=== PATIENT | male | born 1955 | race Caucasian/White ===

== ENCOUNTER 2018-02-15 14:26 | Emergency (ER) | payer OTHER ==
[~2018-02-15] VITALS: Ht 180.3 cm; Wt 69.0 kg
[~2018-02-15 14:26] MED LIST: ASPIRIN81 M2 PO; CARVEDILOL3.125 MG PO; ENTRESTO 24 MG1 EACH PO; LIPITOR10 MG PO; VENTOLIN HFA 1818 GM INH
[2018-02-15] MEDS ORDERED: REQUIP0.5 MG PO (14:50)
[2018-02-15] MEDS ORDERED: LIORESAL 10 MG10 MG PO (14:50)
[2018-02-15] MEDS ORDERED: XARELTO20 MG PO (14:51)
[2018-02-15] MEDS ORDERED: PEPCID AC20 MG PO (14:51)
[2018-02-15] MEDS ORDERED: EUCERIN INTENS113 GM TOP (14:52)
[2018-02-15] MEDS ORDERED: DESENEX85 GM TOP (14:52)
[2018-02-15 15:31] VITALS: BP 106/59
== END 2018-02-15 15:33 | disposition home or self-care (01) ==
LOC: M.ERS 14:26
DX: L89.610 Pressure ulcer of right heel, unstageable (principal); F17.210 Nicotine dependence, cigarettes, uncomplicated; Z86.73 Personal history of transient ischemic attack (TIA), and cerebral infarction without residual deficits

== ENCOUNTER → 2018-02-17 | Outpatient (CLI) | payer OTHER ==
[~2018-02-17] MED LIST changes: +DESENEX85 GM TOP; +EUCERIN INTENS113 GM TOP; +LIORESAL 10 MG10 MG PO; +PEPCID AC20 MG PO; +REQUIP0.5 MG PO; +XARELTO20 MG PO
== END ==
LOC: M.WC 01:27
DX: L89.511 Pressure ulcer of right ankle, stage 1 (principal); I63.40 Cerebral infarction due to embolism of unspecified cerebral artery; I42.9 Cardiomyopathy, unspecified; I50.22 Chronic systolic (congestive) heart failure; E78.2 Mixed hyperlipidemia; G62.9 Polyneuropathy, unspecified; K21.9 Gastro-esophageal reflux disease without esophagitis; Z68.21 Body mass index [BMI] 21.0-21.9, adult; Z86.73 Personal history of transient ischemic attack (TIA), and cerebral infarction without residual deficits; Z87.891 Personal history of nicotine dependence

== ENCOUNTER → 2018-06-01 | Outpatient (CLI) | payer OTHER | LOC: M.RAD 15:14 | DX: M79.672 Pain in left foot (principal); M79.661 Pain in right lower leg; R60.0 Localized edema ==

== ENCOUNTER → 2018-09-06 | Outpatient (CLI) | payer OTHER ==
--- NOTE | 2018-09-06 17:16 | 2DMMODE ---
[place] [address] 2 D/M-MODE ECHOCARDIOGRAM Name: MARTHALASHELL DAVIS Room: [facility]#: [id number] Admission: 09/06/18 Attend Phys: Saurabh Holder, Discharge: Date of : 59 Date of Service: 09/06/18 1715 Report #: [id number] THIS REPORT FOR: //name// APPROVED REPORT Study performed: 09/06/2018 14:38:39 EXAM: Comprehensive 2D, Doppler, and color-flow Echocardiogram Patient Location: Out-Patient Status: routine BSA: 1.99 HR: 64 bpm BP: 126/89 mmHg Other Information Study Quality: Good Indications Cardiomyopathy 2D Dimensions IVSd: 13.89 (7-11mm) LVOT Diam: 20.14 (18-24mm) LVDd: 49.86 mm PWd: 13.60 (7-11mm) Ascending Ao: 28.06 (22-36mm) LVDs: 40.85 (25-40mm) Aortic Root: 30.46 mm Volumes Left Atrial Volume (Systole) LA ESV Index: 19.50 mL/m2 Aortic Valve AoV Peak Zhou.: 1.25 m/s AO Peak Gr.: 6.22 mmHg LVOT Max P.14 mmHg AO Mean Gr.: 3.43 mmHg LVOT Mean P.34 mmHg LVOT Max V: 1.24 m/s AO V2 VTI: 25.78 cm LVOT Mean V: 0.68 m/s TAM (VTI): 2.81 cm2 LVOT V1 VTI: 22.73 cm Mitral Valve E/A Ratio: 0.80 MV Decel. Time: 360.52 ms MV E Max Zhou.: 0.50 m/s MV PHT: 104.55 [place] [address] 2 D/M-MODE ECHOCARDIOGRAM Name: LASHELL THOMAS Room: [facility]#: [id number] Admission: 09/06/18 Attend Phys: Saurabh Holder, Discharge: Date of : 59 Date of Service: 09/06/18 1715 Report #: [id number] MVA (PHT): 2.10 cm2 TDI E/Lateral E': 4.55 E/Medial E': 8.33 Medial E' Zhou.: 0.06 m/s Lateral E' Zhou.: 0.11 m/s Pulmonary Valve PV Peak Zhou.: 1.30 m/s PV Peak Gr.: 6.71 mmHg Left Ventricle The left ventricle is normal size. There is global hypokinesis of the left ventricle. Paradoxical septal motion consistent with conduction abnormality. Mild concentric left ventricular hypertrophy. Left ventricular systolic function is mildly decreased. LVEF is 40-45%. Grade I - abnormal relaxation pattern. Right Ventricle The right ventricle is normal size. The right ventricular systolic function is normal. Atria The left atrium size is normal. The right atrium size is normal. Aortic Valve The aortic valve is normal in structure. No aortic regurgitation is present. There is no aortic valvular stenosis. Mitral Valve The mitral valve is normal in structure. Mild mitral regurgitation. No evidence of mitral valve stenosis. Tricuspid Valve The tricuspid valve is normal in structure. There is no tricuspid valve regurgitation noted. Pulmonic Valve The pulmonary valve is normal in structure. There is no pulmonic valvular regurgitation. Great Vessels The aortic root is normal in size. IVC is normal in size and collapses >50% with inspiration[place] [address] 2 D/M-MODE ECHOCARDIOGRAM Name: LASHELL THOMAS Room: [facility]#: [id number] Admission: 09/06/18 Attend Phys: Saurabh Holder, Discharge: Date of : 59 Date of Service: 09/06/181714 Report #: [id number] There is no pericardial effusion. <Conclusion> Mild concentric left ventricular hypertrophy. LVEF is 40-45%. Mild mitral regurgitation. <ELECTRONICALLY SIGNED> By: Noe Capellan MD, FACC 09/06/181714 14 14 Noe Capellan MD, FACC /INF
== END ==
LOC: M.CRD 14:31
DX: I34.0 Nonrheumatic mitral (valve) insufficiency (principal); I51.7 Cardiomegaly; I42.8 Other cardiomyopathies

== ENCOUNTER 2019-12-03 17:13 | Inpatient (IN) | payer OTHER ==
[~2019-12-03] VITALS: Ht 177.8 cm; Wt 81.6 kg
[~2019-12-03 17:13] MED LIST changes: -PEPCID AC20 MG PO
[2019-12-03 17:26] VITALS: BP 116/69
[2019-12-03] MEDS ORDERED: ESCITALOPRA5 MG/5 ML PO (17:32)
[2019-12-03 18:01] LABS: INFLUENZA A ANTIGEN Negative (Negative); INFLUENZA B ANTIGEN Negative (Negative)
[2019-12-03 18:08] LABS: BE 1.6 mmol/L (-2 to +3); PCO2 40.9 mmHg (35.0-45.0); PO2 67.2 mmHg (75.0-100.0); pH 7.424 (7.340-7.450)
[2019-12-03 18:58] LABS: ABSOLUTE BASOPHILS 0.1 thou/uL (0.0-0.2); ABSOLUTE EOSINOPHILS 0.2 thou/uL (0.0-0.7); ABSOLUTE LYMPHOCYTES 2.8 thou/uL (0.8-5.3); ABSOLUTE MONOCYTES 0.8 thou/uL (0.0-1.2); ABSOLUTE NEUTROPHILS 2.1 thou/uL (1.6-8.1); BASOPHILS 0.8 %; EOSINOPHILS 3.7 %; HEMOGLOBIN 15.8 gm/dL (14.0-18.0); LYMPHOCYTES 47.8 %; MCH 30.8 pg (26.0-34.0); MCHC 32.8 g/dL (28.0-37.0); MCV 93.8 fL (80.0-100.0); MONOCYTES 12.7 %; MPV 8.1 fl. (7.2-11.1); NUCLEATED RBCS 0 /100WBC; PLATELET COUNT* 233 thou/uL (150-400); RBC 5.12 mil/uL (4.50-6.00); RDW-CV 14.5 % (10.5-14.5)
[2019-12-03 19:25] LABS: ALBUMIN 3.2 g/dL (3.4-5.0); CALCIUM 7.5 mg/dL (8.5-10.1); CREATININE 0.9 mg/dL (0.6-1.3); TOTAL BILIRUBIN 0.3 mg/dL (<0.1-1.0); TOTAL PROTEIN 6.4 g/dL (6.4-8.2)
[2019-12-03 19:27] LABS: INR 1.3; PROTIME 13.4 Seconds (9.20-11.50)
[2019-12-03 20:11] VITALS: BP 126/71
--- NOTE | 2019-12-04 05:39 | NUR ---
PT ARRIVED AT 2009. A&O, VSS ON RA. ADMISSION HX/ASSESSMENT COMPLETED. MEDS GIVEN ORDERED. USES URINAL TO VOID. PT TOLERATED BREATHING TREATMENT. AT BEDSIDE. WILL CONTINUE TO MONITOR.
[2019-12-04 08:02] VITALS: BP 102/69
[2019-12-04 11:41] LABS: AMP/METHAMP Negative (Negative); BARBITURATES Negative (Negative); BENZODIAZEPINES Negative (Negative); COCAINE Negative (Negative); METHADONE Negative (Negative); OPIATES Negative (Negative); PCP Negative (Negative); THC Negative (Negative)
--- NOTE | 2019-12-04 13:47 | EKG ---
[place] [address] ELECTROCARDIOGRAM REPORT Name: LASHELL THOMAS Room: [address] ADM IN M.R.#: [id number] Admission: 12/03/19 Attend Phys: Nery Rivera MD Discharge: Date of : 59 Report #: [id number] THIS REPORT FOR: //name// [facility] ED Test Date: 2019-12-03 Test Time: 18:24:24 Pat Name: LASHELL THOMAS Department: Room: [facility] Gender: M Documentum Consultant: [facility] : 1955 Requested By: Jodee King Order Number: [id number] MD: Noe Capellan Measurements Intervals [place] Rate: 56 P: 47 W[place]: 216 QRS: -7 QRSD: 148 T: 172 QT: 462 QTc: 446 Interpretive Statements Sinus rhythm Borderline prolonged [place] interval Left bundle branch block Compared to ECG 07/05/2017 19:54:44 pvc no longer seen Electronically Signed On 12-04-2019 13:47:21 BEDSPREAD INSPECTOR by Noe Capellan [email or web address] <ELECTRONICALLY SIGNED> By: Noe Capellan MD, [facility] 12/04/19 1347 1824 1824 Noe Capellan MD, [facility] /EPI
[2019-12-04] MEDS ORDERED: NEURONTIN 400M400 M2 PO (13:56)
[2019-12-04] MEDS ORDERED: ROPINIROLE HCL0.5 MG PO (13:57)
[2019-12-04] MEDS ORDERED: ENTRESTO 24 MG1 EACH PO (13:57)
[2019-12-04] MEDS ORDERED: CARVEDILOL12.5 MG PO (13:58)
[2019-12-04] MEDS ORDERED: LIPITOR40 MG PO (13:59)
--- NOTE | 2019-12-04 16:37 | NUR ---
ASSUMED CARE OF PT AROUND 0730 THIS AM. REFER TO ASSESSMENT. PT'S BROUGHT IN UPDATED MEDICATION LIST. PT'S HOME MED REC UPDATED AND PHYSICIAN NOTIFIED. VSS. PT APPEARS TO HAVE IMPROVED WORK OF BREATH WITH LESS AUDIBLE WHEEZING THIS EVENING. HOPES PT IS WELL ENOUGH TO GO HOME TOMORROW. NO OTHER CONCERNS AT THIS TIME. CLWR. WCTM.
--- NOTE | 2019-12-04 16:54 | NUR ---
cm completed initial assessment to discuss d/c plan. pt , Pat, present at time of assessment. pt uses cane, pt is unemployeed. pt has no hx w/hh. pt has stayed at [facility] after [facility]. pt has supportive family. pt semi active. 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 cm to remain avail to assist as needed.
[2019-12-04 20:10] VITALS: BP 117/72
--- NOTE | 2019-12-05 04:32 | NUR ---
VSS ON RA. DENIED PAIN. MEDS GIVEN ORDERED. UP TO THE BATHROOM BY WHEELCHAIR WITH MODERATE ASSIST. PT REFUSED TURNS. HOURLY ROUNDING COMPLETED. WILL CONTINUE TO MONITOR.
[2019-12-05 05:18] LABS: HEMATOCRIT 40.4 % (42.0-52.0); MCHC 33.6 g/dL (28.0-37.0); MCV 92.2 fL (80.0-100.0); MPV 8.3 fl. (7.2-11.1); NUCLEATED RBCS 0 /100WBC; PLATELET COUNT* 302 thou/uL (150-400); RBC 4.39 mil/uL (4.50-6.00); RDW-CV 14.5 % (10.5-14.5); WBC 20.4 thou/uL (4.0-11.0)
[2019-12-05 05:31] LABS: HEMOGLOBIN 13.6 gm/dL (14.0-18.0)
[2019-12-05 05:40] LABS: CALCIUM 8.3 mg/dL (8.5-10.1); POTASSIUM 3.8 mmol/L (3.5-5.1)
[2019-12-05 06:22] LABS: ABSOLUTE MONOCYTES 0.2 thou/uL (0.0-1.2); ABSOLUTE NEUTROPHILS 19.2 thou/uL (1.6-8.1); ANISOCYTOSIS 1+; PLATELET ESTIMATE ADEQUATE; POIKILOCYTOSIS 1+
[2019-12-05 08:30] VITALS: BP 100/55
[2019-12-05 16:00] VITALS: BP 105/59
--- NOTE | 2019-12-05 16:49 | NUR ---
PATIENT ALERT AND ORIENTED X 4. VITAL SIGNS STABLE ON ROOM AIR. UP WITH ASSISTANCE TO WHEELCHAIR. VOIDING PER URINAL. IV PATENT AND SALINE LOCKED. ANTIBIOTICS GIVEN PER MAR. DENIES PAIN AND NAUSEA AT THIS TIME. FALL PRECAUTIONS IN PLACE AND BED ALARM ON. HOURLY ROUNDS MAINTAINED THROUGHOUT THE SHIFT. CALL LIGHT WITHIN REACH. NURSING WILL CONTINUE TO MONITOR.
--- NOTE | 2019-12-05 17:45 | NUR ---
SPOKE WITH PT.S ON PHONE TO SEE IF SHE FELT COMFORTABLE TAKING HIM HOME AT DISCHARGE AND IF SHE FELT HE WAS BACK TO BASELINE WITH AMBULATION,ETC. SHE SAID YES. SHE DID NOT WANT HIM TO GO TO A SNF. HE IS PART OF THE [employer]. 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 ONE DAY A WEEK,A SPEECH THERAPIST COMES TO THE HOUSE TO WORK WITH HIM. SHE SAID THEY HAVE A WC BUT SHE NORMALLY DOESN'T LET HIM USE IT IN THE HOUSE, HE WOULD WANT TO USE IT ALL THE TIME. IF HE SEEMS WEAKER WHEN HE GETS HOME, SHE WILL HAVE HIM USE IT FOR A FEW DAYS. SHE IS AWARE HE MAY BE DISCHARGED TOMORROW.
[2019-12-05 19:55] VITALS: BP 127/65
[2019-12-06 04:31] LABS: CALCIUM 7.8 mg/dL (8.5-10.1); CREATININE 0.8 mg/dL (0.6-1.3); MAGNESIUM 1.9 mg/dL (1.8-2.4)
--- NOTE | 2019-12-06 05:50 | NUR ---
VSS ON RA. MEDS GIVEN ORDERED. TOLERATING BREATHING TREATMENT. DENIED PAIN. USES CALL LIGHT FOR BATHROOM. ELECTROLYTE REPLACEMENT IN PROGRESS. HOURLY ROUNDING COMPLETED. WILL CONTINUE TO MONITOR.
[2019-12-06] MEDS ORDERED: CEFDINIR300 MG PO (07:55)
[2019-12-06] MEDS ORDERED: AZITHROMYCIN 2250 MG PO (07:55)
[2019-12-06] MEDS ORDERED: TESSALON PERLE100 MG PO (07:55)
[2019-12-06] MEDS ORDERED: NEBULIZER MISCELL (07:56)
[2019-12-06 08:30] VITALS: BP 121/76
[2019-12-06] MEDS ORDERED: PEPCID AC20 MG PO (10:56)
--- NOTE | 2019-12-06 11:00 | NUR ---
ORDER FOR NEBULIZER FROM . SHELBY SPOKE WITH IN ROOM. SHE SAID PT.S PCP- HAD ORDERED ONE FROM [facility] BUT THEY ARE WAITING ON INSURANCE AUTH. SHELBY CALLED [facility] AND SPOKE WITH ALLEN. SHE SAID THEY ACTUALLY RECEIVED AUTH FROM INSURANCE THIS AM AND CAN DELIVER IT TO PTS HOME TODAY. SHE WILL CALL TO MAKE SURE THEY ARE HOME PRIOR TO DELIVERY. ALSO SAID ORDERRED THE MEDICAITIONS TO GO IN THE NEBULIZER. TAYLOR KNOWLES INFORMED.
[2019-12-06 11:02] VITALS: BP 121/76
--- NOTE | 2019-12-06 12:14 | NUR ---
PATIENT D/C INSTRUCTIONS GIVEN AT THIS TIME. PATIENT D/C TO HOME WITH . ALL QUESTIONS ANSWERED. SCRIPTS SENT TO PHARMACY. PAPERWORK GIVEN.
== END 2019-12-06 12:05 | disposition home or self-care (01) | DRG 177 ==
LOC: M.ERS 17:13 → M.TBA-ER 19:18 → M.ORTHSURG 19:18
PROVIDERS: Internal Medicine; Nurse Practitioner Family; ADMIT Internal Medicine
DX: J15.6 Pneumonia due to other Gram-negative bacteria (principal); J96.00 Acute respiratory failure, unspecified whether with hypoxia or hypercapnia; J44.0 Chronic obstructive pulmonary disease with (acute) lower respiratory infection; J44.1 Chronic obstructive pulmonary disease with (acute) exacerbation; I42.9 Cardiomyopathy, unspecified; I69.351 Hemiplegia and hemiparesis following cerebral infarction affecting right dominant side; R47.01 Aphasia; I50.9 Heart failure, unspecified; J20.9 Acute bronchitis, unspecified; Z79.899 Other long term (current) drug therapy; Z87.891 Personal history of nicotine dependence; Z80.9 Family history of malignant neoplasm, unspecified; Z82.49 Family history of ischemic heart disease and other diseases of the circulatory system

== ENCOUNTER 2021-10-20 10:05 | Inpatient (IN) | payer MEDICARE, OTHER ==
[~2021-10-20] VITALS: Ht 177.8 cm; Wt 92.1 kg
[~2021-10-20 10:05] MED LIST changes: +AZITHROMYCIN 2250 MG PO; +CARVEDILOL12.5 MG PO; +CEFDINIR300 MG PO; +ESCITALOPRA5 MG/5 ML PO; +LIPITOR40 MG PO; +NEBULIZER MISCELL; +NEURONTIN 400M400 M2 PO; +PEPCID AC20 MG PO; +ROPINIROLE HCL0.5 MG PO; +TESSALON PERLE100 MG PO
[2021-10-20 10:18] VITALS: BP 115/68
[2021-10-20 10:58] LABS: HEMOGLOBIN 13.7 gm/dL (14.0-18.0); MCH 30.1 pg (26.0-34.0); MCHC 32.6 g/dL (28.0-37.0); MCV 92.1 fL (80.0-100.0); MPV 8.1 fl. (7.2-11.1); NUCLEATED RBCS 0 /100WBC; PLATELET COUNT* 369 thou/uL (150-400); RBC 4.56 mil/uL (4.50-6.00); RDW-CV 15.1 % (10.5-14.5); WBC 33.1 thou/uL (4.0-11.0)
[2021-10-20 11:18] LABS: INFLUENZA A ANTIGEN Negative (Negative); INFLUENZA B ANTIGEN Negative (Negative)
[2021-10-20 11:54] LABS: ABSOLUTE LYMPHOCYTES 1.3 thou/uL (0.8-5.3); ABSOLUTE MONOCYTES 3.3 thou/uL (0.0-1.2); ABSOLUTE NEUTROPHILS 28.5 thou/uL (1.6-8.1); PLATELET ESTIMATE ADEQUATE
--- NOTE | 2021-10-20 12:29 | EKG ---
[place] [address] ELECTROCARDIOGRAM REPORT Name: LASHELL THOMAS Room: [facility].#: [id number] Admission: 10/20/21 Attend Phys: Discharge: Date of : 59 Date of Service: 10/20/21 1016 Report #: [id number] THIS REPORT FOR: //name// 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 Manager: : 1955 Requested By: Jodee King Order Number: [id number] MD: Noe Capellan Measurements Intervals [place] Rate: 97 P: 42 [place]: 197 QRS: 37 QRSD: 149 T: 207 QT: 374 QTc: 475 Interpretive Statements Sinus rhythm Ventricular premature complex Left bundle branch block Baseline wander in lead(s) V2 Compared to ECG 12/03/2019 18:24:24 Ventricular premature complex(es) now present Electronically Signed On 10-20-2021 12:29:46 TOMOGRAPHIC TECH by Noe Capellan [email or web address] <ELECTRONICALLY SIGNED> By: Noe Capellan MD, FACC 10/20/21 1229 1016 1016 Noe Capellan MD, FACC /EPI
[2021-10-20 12:39] LABS: CREATININE 1.3 mg/dL (0.6-1.3); POTASSIUM 4.4 mmol/L (3.5-5.1)
[2021-10-20 12:50] LABS: ALBUMIN 2.8 g/dL (3.4-5.0); TOTAL BILIRUBIN 1.4 mg/dL (<0.1-1.0); TOTAL PROTEIN 6.6 g/dL (6.4-8.2)
[2021-10-20 15:48] LABS: URINE BILIRUBIN NEGATIVE (Negative); URINE BLOOD TRACE (Negative); URINE CLARITY CLEAR; URINE COLOR YELLOW; URINE GLUCOSE-RANDOM NEGATIVE (Negative); URINE KETONES NEGATIVE (Negative); URINE LEUKOCYTES-REFLEX TRACE (Negative); URINE PROTEIN NEGATIVE (Negative); URINE SPECIFIC GRAVITY <= 1.005 (1.005-1.030); URINE UROBILINOGEN 0.2 E.U./dl (0.2-1.0)
[2021-10-20 15:49] LABS: URINE NITRITE-REFLEX POSITIVE (Negative)
[2021-10-20 15:56] LABS: BACTERIA-REFLEX 1-9 Few /HPF (None Seen); CASTS None Seen /LPF (None Seen); CRYSTALS None Seen /LPF (None Seen); SQUAMOUS 0-3 Few /LPF (0-3); URINE RBC 0-2 Rare /HPF (0-2); URINE WBC-REFLEX 0-5 Rare /HPF (0-5)
[2021-10-20 18:20] VITALS: BP 98/62
[2021-10-20 18:31] VITALS: BP 99/59
[2021-10-20] MEDS ORDERED: LEXAPRO 10 MG T10 M1 PO (18:41)
--- NOTE | 2021-10-20 18:44 | NUR ---
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
[2021-10-20 20:00] VITALS: BP 96/55
[2021-10-21 00:22] VITALS: BP 95/52
[2021-10-21 05:20] LABS: ABSOLUTE LYMPHOCYTES 0.6 thou/uL (0.8-5.3); ABSOLUTE MONOCYTES 0.2 thou/uL (0.0-1.2); ABSOLUTE NEUTROPHILS 20.3 thou/uL (1.6-8.1); BASOPHILS 0.1 %; LYMPHOCYTES 2.9 %; MCH 30.1 pg (26.0-34.0); MCHC 32.5 g/dL (28.0-37.0); MCV 92.6 fL (80.0-100.0); MPV 8.3 fl. (7.2-11.1); NUCLEATED RBCS 0 /100WBC; RDW-CV 14.8 % (10.5-14.5); WBC 21.2 thou/uL (4.0-11.0)
[2021-10-21 05:31] LABS: PLATELET COUNT* 284 thou/uL (150-400)
[2021-10-21 05:36] VITALS: BP 104/60
[2021-10-21 05:44] LABS: PREALBUMIN 12.4 mg/dL (18.0-35.7)
[2021-10-21 05:48] LABS: CALCIUM 7.8 mg/dL (8.5-10.1); POTASSIUM 3.6 mmol/L (3.5-5.1)
[2021-10-21 07:55] VITALS: BP 93/57
--- NOTE | 2021-10-21 10:44 | 2DMMODE ---
[place] [address] 2 D/M-MODE ECHOCARDIOGRAM Name: LASHELL THOMAS Room: [address] IN .R.#: [id number] Admission: 10/20/21 Attend Phys: Joaquín Soto, Discharge: Date of : 59 Date of Service: 10/21/21 1044 Report #: [id number] THIS REPORT FOR: cc: Thomas Barrera,Thomas Jarrett,Noe Velázquez MD [facility] ~ APPROVED REPORT Study performed: 10/20/2021 15:55:51 EXAM: Comprehensive 2D, Doppler, and color-flow Echocardiogram Patient Location: In-Patient Room #: er BSA: 2.04 HR: 77 bpm BP: 95/58 mmHg Rhythm: NSR Other Information Study Quality: Fair Indications Congestive Heart Failure 2D Dimensions IVSd: 14.41 (7-11mm) LVOT Diam: 21.83 (18-24mm) LVDd: 38.84 mm PWd: 12.55 (7-11mm) Ascending Ao: 32.37 (22-36mm) LVDs: 25.24 (25-40mm) Aortic Root: 34.81 mm Volumes Left Atrial Volume (Systole) LA ESV Index: 24.40 mL/m2 Aortic Valve AoV Peak Zhou.: 1.23 m/s AO Peak Gr.: 6.04 mmHg LVOT Max P.27 mmHg AO Mean Gr.: 3.57 mmHg LVOT Mean P.76 mmHg LVOT Max V: 0.90 m/s AO V2 VTI: 22.18 cm LVOT Mean V: 0.62 m/s TAM (VTI): 2.69 cm2 LVOT V1 VTI: 15.97 [place] [address] 2 D/M-MODE ECHOCARDIOGRAM Name: LASHELL THOMAS Room: [address] IN ..#: [id number] Admission: 10/20/21 Attend Phys: Joaquín Soto, Discharge: Date of : 59 Date of Service: 10/21/21 1044 Report #: [id number] Mitral Valve E/A Ratio: 1.15 MV Decel. Time: 180.91 ms MV E Max Zhou.: 0.65 m/s MV PHT: 52.46 ms MVA (PHT): 4.19 cm2 TDI E/Lateral E': 6.50 Lateral E' Zhou.: 0.10 m/s Pulmonary Valve PV Peak Zhou.: 1.10 m/s PV Peak Gr.: 4.84 mmHg Left Ventricle The left ventricle is normal size. There is normal LV segmental wall motion. Mild concentric left ventricular hypertrophy. Left ventricular systolic function is normal. The left ventricular ejection fraction is within the normal range. LVEF is 65%. This study is not technically sufficient to allow evaluation of the LV diastolic function. Right Ventricle The right ventricle is normal size. The right ventricular systolic function is normal. Atria The left atrium size is normal. The right atrium size is normal. Aortic Valve The aortic valve is normal in structure. No aortic regurgitation is present. There is no aortic valvular stenosis. Mitral Valve The mitral valve is normal in structure. There is no mitral valve regurgitation noted. No evidence of mitral valve stenosis. Tricuspid Valve The tricuspid valve is normal in structure. There is no tricuspid valve regurgitation noted. Pulmonic Valve Pulmonic valve is not well visualized. There is no pulmonic [place] [address] 2 D/M-MODE ECHOCARDIOGRAM Name: LASHELL THOMAS Room: [address] IN [facility].#: [id number] Admission: 10/20/21 Attend Phys: Joaquín Soto, Discharge: Date of : 59 Date of Service: 10/21/21 1044 Report #: [id number] Great Vessels The aortic root is normal in size. IVC is not well visualized. Pericardium Trace pericardial effusion. <Conclusion> Mild concentric left ventricular hypertrophy. LVEF is 65%. <ELECTRONICALLY SIGNED> By: Noe Capellan MD, FACC 10/21/21 1044 Noe Capellan MD, [facility] /INF
--- NOTE | 2021-10-21 10:58 | NUR ---
ASSUMED CARE OF PT THIS AM AROUND 714- IT HELP DESK ANALYST IN PLACE ORDERED, TRACING SR/BBB- UPON ASSESSMENT PT NOTED TO BE RESTING IN BED- PT ALERT AND ORIENTATED, BUT UNABLE TO ACCURATLY ASSESS R/T EXTREAM APHASIA- INCONT OF B/B- Q 2HOUR TURNS IN PLACE INDICATED- EXPIRATORY WHEEZES NOTED, DYSPNEA NOTED ON EXERTION- VSS, O2 SAT 94% ON RA- ABD SOFT/ROUND/NON-TENDER, BS X4 QUADS- LAST BM REPORTED X2 DAYS AGO- SET UP ASSISTANCE REQUIRED WITH MEALS, POOR PO INTAKE NOTED THIS AM- IV NOTED TO LEFT HAND C/D/I, AND SL- IV ABT'S GIVEN THIS AM PRESCIBED- PT REPORTS DISCOMFORT TO BLE- CALL LIGHT AND PERSONAL BELONGINGS WITH IN REACH- HOURLY ROUNDS IN PLACE R/T SAFETY/NEEDS- ALL NEEDS MET AT THIS TIME
[2021-10-21 12:28] VITALS: BP 100/56
--- NOTE | 2021-10-21 16:44 | NUR ---
CM ATTEMPTED TO SPEAK TO THE PT TO DISCUSS CM ASSESSMENT. PT WITH EXPRESSIVE APASIA, AND UNABLE TO ASSIST WITH ASSESSMENT. CM ATTEMPTED TO CONTACT PT'S SPOUSE, BUT SHE HAD A FAMILY EMERGENCY AND WAS UNABLE TO COMPLETE ASSESSMENT. CM WILL F/U WITH THE PT'S SPOUSE TO DISCUSS CM ASSESSEMENT AND D/C PLANNING. CM WILL REMAIN AVAILABLE TO ASSIST AND FOLLOW NEEDED.
[2021-10-21 17:51] VITALS: BP 105/61
[2021-10-21 20:00] VITALS: BP 106/64
[2021-10-22 00:15] VITALS: BP 114/60
--- NOTE | 2021-10-22 03:33 | NUR ---
PT ALERT. R SIDED HEMIPARESIS. TURN Q 2 HRS. EXPRESIVE APASIA UNABLE TO FULLY ASSESS ORIENTATION. ORAL COMMUNICATION INSTRUCTOR TRACING SR.
[2021-10-22 04:39] VITALS: BP 104/59
[2021-10-22 05:11] LABS: ABSOLUTE LYMPHOCYTES 0.9 thou/uL (0.8-5.3); ABSOLUTE MONOCYTES 0.4 thou/uL (0.0-1.2); BASOPHILS 0.1 %; HEMATOCRIT 37.3 % (42.0-52.0); HEMOGLOBIN 11.8 gm/dL (14.0-18.0); LYMPHOCYTES 4.3 %; MCH 29.7 pg (26.0-34.0); MCHC 31.7 g/dL (28.0-37.0); MCV 93.7 fL (80.0-100.0); MONOCYTES 1.9 %; MPV 8.4 fl. (7.2-11.1); NUCLEATED RBCS 0 /100WBC; PLATELET COUNT* 306 thou/uL (150-400); POLYS 93.7 %; RBC 3.98 mil/uL (4.50-6.00); RDW-CV 14.9 % (10.5-14.5); WBC 21.3 thou/uL (4.0-11.0)
[2021-10-22 07:41] VITALS: BP 105/59
--- NOTE | 2021-10-22 10:54 | NUR ---
ASSUMED CARE OF PT THIS AM AROUND 714- PARTY PLAN SALES UNIT ADVISOR IN PLACE ORDERED, TRACING SR WITH BBB- UPON ASSESSMENT PT NOTED TO BE RESTING IN BED- PT ALERT, NOTED EXTENSIVE APHASIA- INCONT OF B/B- Q 2HOUR TURNS IN PLACE INDICATED- DIMINSHED LUNG SOUNDS NOTED- VSS, O2 SAT 92% ON RA- ABD SOFT/ROUND/NON-TENDER, BS X4 QUADS- LAST BM X3 DAYS AGO- PENDING STOOL SAMPLE COLLECTION- IV NOTED TO LEFT HAND INTACT AND SL- IV ABT GIVEN THIS AM PRESCIBED- SET UP ASSIST REQUIRED WITH MEALS, FAIR PO INTAKE NOTED- MORNING BP MEDS NOTED TO BE GIVEN LATER THAN SCHEDULED TIME ON PRIOR SHIFT, MORNING BP MEDICAITON HELD THIS AM- CALL LIGHT AND PERSONAL BELONGINGS WITH IN REACH- HOURLY ROUNDS IN PLACE R/T SAFETY/NEEDS- ALL NEEDS MET AT THIS TIME
[2021-10-22 13:25] VITALS: BP 96/57
[2021-10-22 17:12] VITALS: BP 108/62
[2021-10-22 20:00] VITALS: BP 116/69
--- NOTE | 2021-10-22 20:00 | NUR ---
RECEIVED REPORT AND ASSUMED CARE OF PT, ASSESSMENT COMPLETED. PT APHASIC AND VERY DIFFICULT TO COMMUNICATE WITH. RT ARM FLACCID. TELEMETRY ON SHOWING SB WITH 1ST AVB AND BBB. WILL CONT TO MONITOR AND ASSIST NEEDED.
[2021-10-23 01:00] VITALS: BP 94/62
[2021-10-23 04:00] VITALS: BP 95/54
[2021-10-23 05:21] LABS: ABSOLUTE MONOCYTES 0.6 thou/uL (0.0-1.2); ABSOLUTE NEUTROPHILS 14.5 thou/uL (1.6-8.1); BASOPHILS 0.1 %; HEMATOCRIT 36.7 % (42.0-52.0); HEMOGLOBIN 12.1 gm/dL (14.0-18.0); LYMPHOCYTES 6.2 %; MCH 30.3 pg (26.0-34.0); MCHC 32.9 g/dL (28.0-37.0); MCV 92.2 fL (80.0-100.0); MONOCYTES 3.9 %; MPV 8.3 fl. (7.2-11.1); NUCLEATED RBCS 0 /100WBC; PLATELET COUNT* 303 thou/uL (150-400); POLYS 89.8 %; RBC 3.98 mil/uL (4.50-6.00); RDW-CV 14.7 % (10.5-14.5); WBC 16.1 thou/uL (4.0-11.0)
--- NOTE | 2021-10-23 05:37 | NUR ---
SLEPT WELL. BRIEFS ON, INCONT. ATTEMPTED TO ASSIST WITH URINAL BUT PT SAYING NO NO. PT STANDING WITH ASSIST TO REMOVE BRIEFS. PT MOVING SELF IN BED FROM BACK ONTO RT SIDE. NO CHANGE IN ASSESSMENT. TALKING TO FLUIDS WITHOUT COUGHING OR CHOKING. TELEMETRY SHOWING SB WITH BBB. HS GOALS OF REST AND SAFETY ACHIEVED.
[2021-10-23 06:10] LABS: CALCIUM 7.9 mg/dL (8.5-10.1); CREATININE 0.9 mg/dL (0.6-1.3); POTASSIUM 3.5 mmol/L (3.5-5.1); TOTAL BILIRUBIN 0.2 mg/dL (<0.1-1.0); TOTAL PROTEIN 5.8 g/dL (6.4-8.2)
[2021-10-23 08:31] VITALS: BP 111/65
[2021-10-23 08:34] VITALS: BP 111/65
[2021-10-23] MEDS ORDERED: LEVOFLOXACIN500 MG PO (09:48)
--- NOTE | 2021-10-23 11:15 | NUR ---
CM COMPLETED ASSESSMENT WITH PT AND , LEO, AT BEDSIDE. PT LIVES HOME WITH SPOUSE. PT HAS CANE AND W/C. PT USE NEBULIZER AT HOME. PT HAS NO HX WITH HH OR SNF. HH HAS BEEN ORDERED. HAS NO PREFERENCE OF AGENCY. CM FAXED REFERRAL TO [facility]. [phone].
[2021-10-23 11:32] VITALS: BP 111/65
--- NOTE | 2021-10-23 12:13 | NUR ---
DONALD WITH [facility] [address] INDICATED THEY ARE ACCEPTING OF PT [facility]O [facility]. PT NOTIFED HH WILL CONTACT HER DIRECTLY TO ARRANGE VISITS.
== END 2021-10-23 12:54 | disposition home health service (06) | DRG 871 ==
LOC: M.ERS 10:05 → M.TBA-ER 14:12 → M.2W 14:12
PROVIDERS: Nurse Practitioner Family; ADMIT Internal Medicine; ATTEND Internal Medicine
DX: A41.9 Sepsis, unspecified organism (principal); J69.0 Pneumonitis due to inhalation of food and vomit; G81.91 Hemiplegia, unspecified affecting right dominant side; R47.01 Aphasia; I42.9 Cardiomyopathy, unspecified; Z20.822 Contact with and (suspected) exposure to COVID-19; Z86.73 Personal history of transient ischemic attack (TIA), and cerebral infarction without residual deficits; Z87.891 Personal history of nicotine dependence; Z79.01 Long term (current) use of anticoagulants; Z79.899 Other long term (current) drug therapy; Z28.21 Immunization not carried out because of patient refusal

== ENCOUNTER → 2021-11-19 | Outpatient (CLI) | payer MEDICARE, OTHER ==
[~2021-11-19] MED LIST changes: +LEVOFLOXACIN500 MG PO; +LEXAPRO 10 MG T10 M1 PO
== END ==
LOC: M.RAD 09:51
PROVIDERS: ATTEND Family Medicine
DX: J44.1 Chronic obstructive pulmonary disease with (acute) exacerbation (principal); J98.4 Other disorders of lung; R05.9 Cough, unspecified; J18.9 Pneumonia, unspecified organism